=== PATIENT | female | born 1960 | race Caucasian/White ===

== ENCOUNTER 2017-02-14 15:51 | Emergency (ER) | payer OTHER ==
--- NOTE | ~2017-02-14 | EKG ---
PATIENT: RAJENDRA ASCENCIO UNIT #: [id number] Ventricular Rate: 100 BPM Atrial Rate: 100 BPM P-R Interval: 132 ms QRS Duration: 66 ms Q-T Interval: 334 ms QTC Calculation(Bezet): 430 ms P Sasser: 57 degrees Calculated R Sasser: 35 degrees Calculated T Sasser: 30 degrees Diagnosis Line: Normal sinus rhythm Diagnosis Line: Normal ECG Diagnosis Line: No previous ECGs available Diagnosis Line: Confirmed by DANIA JOEL MD ([id number]) on Diagnosis Line: 02/16/2017 8:44:37 AM INTERPRETING MD: IVANIA
[2017-02-14 14:05] LABS: ALKALINE PHOSPHATASE 127 U/L (32-92); ALT (SGPT) 22 U/L (10-40); AST (SGOT) 26 U/L (10-42); BILIRUBIN,TOTAL 0.3 mg/dL (0.2-2.0); BLOOD UREA NITROGEN 16 mg/dL (9-23); CALCIUM SERUM 8.8 mg/dL (8.4-10.2); CARBON DIOXIDE 27 mmol/L (22-31); CHLORIDE 102 mmol/L (100-111); CREATININE SERUM 0.8 mg/dL (0.6-1.4); GLOM FILT RATE Estimated 83.1 mL/min (>60); GLUCOSE FASTING 101 mg/dL (70-110); POTASSIUM 4.2 mmol/L (3.5-5.1); PROTEIN TOTAL SERUM 6.9 g/dL (6.0-8.3); SODIUM 137 mmol/L (135-145)
[2017-02-14 14:06] LABS: BILIRUBIN, DIRECT <0.1 mg/dL (0.0-0.2); BILIRUBIN,INDIRECT 0.2 mg/dL (0.0-0.9)
== END 2017-02-14 17:48 | disposition home or self-care (01) ==
LOC: CED 15:51
PROVIDERS: Emergency Medicine
DX: T40.1X1A Poisoning by heroin, accidental (unintentional), initial encounter (principal); F11.10 Opioid abuse, uncomplicated; I10 Essential (primary) hypertension; F17.200 Nicotine dependence, unspecified, uncomplicated
CPT/HCPCS: 36415; 80048; 80076; 93005; 96360; 99284

== ENCOUNTER 2017-03-10 12:00 | Inpatient (IN) | payer OTHER ==
--- NOTE | ~2017-03-10 | PN ---
Unit #: [id number] #: [id number] Patient: FAIZA ASCENCIO [id number] [facility] [address] [place] [address] [id number] I MR#: [id number] NAME: FAIZA ASCENCIO. ROOM: P202 Age: 56 Sex: F Admission Date: 03/10/2017 : 1960 Attending Physician: Jimmy Bell M.D. Admitting Physician: Jimmy Bell M.D. Primary Care Physician: Primary Care Physician Jimena MELVIN PROGRESS NOTES DATE OF SERVICE: 03/13/2017 DISCUSSION Faiza continues to complain of overall body pain, not relieved by ibuprofen. Her detox symptoms are decreased today. Mood is better with less anxiety and irritability. She is alert and fully oriented with no psychosis and no suicidal ideation. ASSESSMENT Polysubstance dependence. PLAN We will change ibuprofen to naproxen sodium and anticipate discharge in the near future. Dictated by... Gonzalez Allen/zabrina TD: 03/14/2017 12:57 JOB #: [id number] [facility] PROGRESS NOTES Page 1 of 1 X Jimmy Bell MD PROGRESS NOTE
--- NOTE | ~2017-03-10 | HP ---
Unit #: [id number] #: [id number] Patient: FAIZA ASCENCIO [id number] [place] [address] [id number] I MR#: [id number] NAME: FAIZA ASCENCIO. ROOM: [facility] Age: 56 Sex: F Admission Date: 03/10/2017 : 1960 Attending Physician: Jimmy Bell M.D. Admitting Physician: Jimmy Bell M.D. Primary Care Physician: Primary Care Physician No HISTORY AND PHYSICAL HISTORY OF PRESENT ILLNESS Faiza is a 66 year old admitted to [address] [place] [address] because of her polysubstance abuse which includes benzodiazepines and heroin. PAST MEDICAL HISTORY 1. Long history of opioid use. She recently started using heroin. 2. High blood pressure. PAST SURGICAL HISTORY 1. Cholecystectomy 2. Hysterectomy 3. Low back x two ALLERGIES No known drug allergies. SOCIAL HISTORY Smokes less than one pack per day. Drinks alcohol rarely. Admits to a history of illicit substance abuse to include heroin. FAMILY HISTORY Medically noncontributory. REVIEW OF SYSTEMS CONSTITUTIONAL: No fever or chills. HEENT: Denies any sore throat, ear pain or runny nose. CARDIOVASCULAR: Denies chest pain, irregular heart rhythm or palpitations. CHEST: Denies shortness of breath or cough. No hemoptysis. GASTROINTESTINAL: Denies nausea, vomiting, diarrhea or chronic constipation. ENDOCRINE: Denies history of increased thirst or urination. No recent significant weight loss or gain. GENITOURINARY: Denies dysuria, frequency, or hematuria. SKIN: Denies any rashes. HEMATOLOGIC: Denies history of increased bleeding or bruising. MUSCULOSKELETAL: Denies any hot, swollen joints. No generalized muscle pain. NEUROLOGIC: Denies problems with vision or speech. No frequent, severe headaches. No numbness, tingling or weakness in any extremities. Denies loss of bladder or bowel control. CURRENT MEDICATIONS Unit #: [id number] #: [id number] Patient: FAIZA ASCENCIO 1. Detox protocol 2. Mag Ox 400 1 q day 3. Norvasc 5 mg q day PHYSICAL EXAMINATION GENERAL: Alert, well-nourished, in no apparent distress. VITAL SIGNS: Blood pressure 110/78 heart rate 100, respirations 16, temperature 98.6. WEIGHT: 140 pounds. HEIGHT: 5'4". SKIN: Warm and dry without rash or lesion. HEENT: Normocephalic. TMs not viewed. Oral and nasal passages clear. Conjunctivae clear. Pupils equal, round and reactive to light and accommodation. Extraocular movements intact. NECK: Supple without lymphadenopathy or thyromegaly. HEART: Regular rate and rhythm without murmur. LUNGS: Clear. ABDOMEN: Soft, nontender. : Not done. EXTREMITIES: No evidence of cyanosis, clubbing or edema. Moves all extremities without focal deficit. NEUROLOGICAL: Grossly within normal limits. Cranial Nerves: II: Visual pinzon are intact. III, IV AND : Extraocular movements are intact. Pupils are equal, round and reactive to light. V: Facial sensation is grossly normal. VII: Facial movements and expression are normal. VIII: Auditory acuity grossly intact. IX, X: Uvula is midline. Phonation is normal. XI: Patient shrugs shoulders and turns head normally. XII: Tongue protrudes in the midline. Sensory and Motor Function: Sensory and motor sensation is grossly normal. Motor: moves all extremities well. Coordination: Gait is normal. Deep Tendon Reflexes: Intact. IMPRESSION Psychiatric admission RECOMMENDATIONS PSYCHIATRIC: Per psychiatrist. MEDICAL: I see no contraindications to participating in facility's activities. MEDICAL PROGNOSIS Good. MEDICAL CONDITION Stable. Dictated by... Nirali Anderson P.A.-C. for Gonzalez Morton/renny Unit #: [id number] #: [id number] Patient: FAIZA ASCENCIO TD: 03/10/2017 23:48 JOB #: [id number] HISTORY AND PHYSICAL Page 1 of 1 X Nirali Anderson HISTORY AND PHYSICAL
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
--- NOTE | ~2017-03-10 | PN ---
Unit #: [id number] #: [id number] Patient: FAIZA ASCENCIO [id number] [facility] [address] [place] [address] [id number] I MR#: [id number] NAME: FAIZA ASCENCIO. ROOM: P202 Age: 56 Sex: F Admission Date: 03/10/2017 : 1960 Attending Physician: Jimmy Bell M.D. Admitting Physician: Jimmy Bell M.D. Primary Care Physician: Primary Care Physician Jimena PERSON NOTES DATE 03/12/2017 DISCUSSION Faiza is doing a little bit better today. She feels a decreased level of opiate withdrawal symptoms although she focuses a great deal on the possibilities for pain control after discharge. I once again explained to her that we would not be making any significant changes to her pain control regimen, but did recommend measures that she could take individually. Her mood was dysphoric with a decreased range of affect. She was alert and fully oriented. Her memory and concentration were fair, and her thought processes were logical with no psychosis. She had no active suicidal ideation, intent, or plan. ASSESSMENT 1. Opiate dependence with withdrawal. 2. Benzodiazepine dependence. 3. Substance-induced mood disorder. PLAN Continue current treatment plan. Dictated by... Gonzalez AllenH/timmy TD: 03/14/2017 10:46 JOB #: [id number] [facility] PERSON NOTES Page 1 of 1 X Jimmy Bell MD X PROGRESS NOTE
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
[2017-03-11 09:43] LABS: BASOPHIL% 0.5 % (0-2.5); EOSINOPHIL# 0.1 X10e3 (0-0.7); EOSINOPHIL% 2.6 % (0.0-7.0); HEMATOCRIT 41.3 % (35.0-45.0); HEMOGLOBIN 13.6 gm/dL (12.0-16.0); LYMPHOCYTE# 1.8 X10e3 (1.0-3.5); LYMPHOCYTE% 36.5 % (17.0-45.0); MEAN CELL VOLUME 88.4 FL (83-96); MEAN CORPUSCULAR HEMOGLOBIN 29.1 PG (28-34); MEAN PLATELET VOLUME 8.2 FL (6.5-11.5); MONOCYTE# 0.3 X10e3 (0-1.0); MONOCYTE% 5.2 % (3.0-12.0); NEUTROPHIL# 2.8 X10e3 (1.5-7.1); NEUTROPHIL% 55.2 % (40-75); PLATELET COUNT 303 X10e3 (140-420); RED BLOOD COUNT 4.68 X10e (3.90-5.30)
[2017-03-11 09:44] LABS: DIFF IND NO
[2017-03-11 09:51] LABS: ALBUMIN SERUM 3.8 g/dL (3.5-5.0); BILIRUBIN,TOTAL 0.5 mg/dL (0.2-2.0); BUN/CREATININE RATIO 17.5; CALCIUM SERUM 9.4 mg/dL (8.4-10.2); CREATININE SERUM 0.8 mg/dL (0.6-1.4); GLOM FILT RATE Estimated 83.1 mL/min (>60); POTASSIUM 4.2 mmol/L (3.5-5.1); PROTEIN TOTAL SERUM 6.5 g/dL (6.0-8.3)
[2017-03-11 12:29] LABS: URINE APPEARANCE CLOUDY; URINE BILIRUBIN NEG (NEG); URINE BLOOD NEG (NEG); URINE COLOR YELLOW; URINE GLUCOSE NEG (NEG); URINE KETONE TRACE (NEG); URINE LEUKOCYTE ESTERASE NEG (NEG); URINE NITRATE NEG (NEG); URINE PH 6.5 (5-8); URINE PROTEIN NEG (NEG); URINE SPECIFIC GRAVITY 1.019 (1.003-1.035)
[2017-03-11 13:01] LABS: AMPHETAMINE NEG (NEG); BARBITURATES NEG (NEG); BENZODIAZEPINES POS (NEG); COCAINE NEG (NEG); MARIJUANA NEG (NEG); OPIATES NEG (NEG); TRICYCLIC ANTIDEPRESSANTS POS (NEG); U METHADONE NEG (NEG)
== END 2017-03-14 13:29 | disposition home or self-care (01) | DRG 897 ==
LOC: P2S 15:07
PROVIDERS: Psychiatry & Neurology Psychiatry
PROC: HZ2ZZZZ Detoxification Services for Substance Abuse Treatment (ICD-10-PCS; principal; 2017-03-11)
DX: F11.23 Opioid dependence with withdrawal (principal); F11.29 Opioid dependence with unspecified opioid-induced disorder; F13.20 Sedative, hypnotic or anxiolytic dependence, uncomplicated; I10 Essential (primary) hypertension; G89.29 Other chronic pain
CPT/HCPCS: 80053; 80307; 81003; 85025; 86592; J2550